=== PATIENT | male | born 2000 | race Caucasian/White ===

== ENCOUNTER 2023-03-30 00:19 | Emergency (ER) | payer OTHER ==
[~2023-03-30] VITALS: Ht 180.3 cm; Wt 81.8 kg
[2023-03-30 00:26] VITALS: TEMP 97.8
[2023-03-30] MEDS ORDERED: EMTR1TAB53 PO (01:46)
[2023-03-30] MEDS ORDERED: DOLU50TA PO (01:46)
[2023-03-30 02:31] VITALS: BP 140/78; PULSE 75; RESP 16
== END 2023-03-30 02:33 | disposition home or self-care (01) ==
LOC: EMS 00:20
DX: Z71.7 Human immunodeficiency virus [HIV] counseling (principal)
CPT/HCPCS: 99283; Z7502